=== PATIENT | female | born 1980 | race Caucasian/White ===

== ENCOUNTER 2017-06-15 15:52 | Emergency (ER) | payer BC, OTHER ==
[2017-06-15 16:27] VITALS: BP 134/93
--- NOTE | 2017-06-15 16:48 | UC ---
UC General HPI - HPI Summary HPI Summary: pt c/o ear discomfort and head congestion for 10 days. R ear is worsening. no fever. - History of Current Complaint Chief Complaint: UCGeneralIllness Stated Complaint: BILATERAL EAR COMPLAINT Time Seen by Provider: 06/15/17 16:38 Hx Obtained From: Patient Hx Last Menstrual Period: had tubal 2011 Onset/Duration: Gradual Onset Pain Intensity: 6 Associated Signs & Symptoms: Negative: Fever, Headache - Allergy/Home Medications Allergies/Adverse Reactions: Allergies Allergy/AdvReac Type Severity Reaction Status Date / Time miconazole [From Monistat 7] Allergy Intermediate Itching Verified 06/15/17 16: 28 tramadol Allergy Intermediate Hives Verified 06/15/17 16:28 Adhesive Tape Allergy Rash Verified 06/15/17 16:28 PMH/Surg Hx/FS Hx/Imm Hx Neurological History: Migraine - Surgical History Surgical History: Yes Surgery Procedure, Year, and Place: 3 C-sections. Tubal Ligation. 06/24 [facility]. RIGHT HAND 2000. left ganglion cyst - Family History Known Family History: Positive: None - Social History Lives: With Family Alcohol Use: None Substance Use Type: None Smoking Status (MU): Never Smoked Tobacco Household Exposure Type: Cigarettes - Immunization History Most Recent Influenza Vaccination: none Vaccination Up to Date: Yes Review of Systems Constitutional: Negative Skin: Negative Eyes: Negative ENT: Ear Ache, Nasal Discharge, Sinus Congestion, Sinus Pain/Tenderness Respiratory: Negative Cardiovascular: Negative Gastrointestinal: Negative Genitourinary: Negative Motor: Negative Neurovascular: Negative Musculoskeletal: Negative Neurological: Negative Psychological: Negative Is Patient Immunocompromised?: No All Other Systems Reviewed And Are Negative: Yes Physical Exam Triage Information Reviewed: Yes Appearance: Well-Appearing Vital Signs: Initial Vital Signs Temp 97.2 F 06/15/17 16:22 Pulse 71 06/15/17 16:22 Resp 17 06/15/17 16:22 BP 134/93 06/15/17 16:22 Pulse Ox 99 06/15/17 16:22 Vital Signs Reviewed: Yes Eyes: Positive: Conjunctiva Clear - L, Conjunctiva Inflamed - R slightly injected ENT: Positive: Pharynx normal, Nasal congestion, TMs normal - L, TM red - R. R canal pink and pain with pressure on tragus. L canal is clear.. Negative: Nasal drainage Neck: Positive: Supple, Nontender, No Lymphadenopathy Respiratory: Positive: Lungs clear, Normal breath sounds Cardiovascular: Positive: RRR, No Murmur Abdomen Description: Positive: Nontender, No Organomegaly, Soft Bowel Sounds: Positive: Present Neurological: Positive: Alert Psychological: Positive: Age Appropriate Behavior Skin Exam: Normal Course/Dx - Course Course Of Treatment: R OM/OE. pink eye with no exudate thus no tx. - Differential Dx - Multi-Symptom Provider Diagnoses: R OM, R OE Discharge - Discharge Plan Condition: Stable Disposition: HOME Prescriptions: Amoxicillin PO (*) [Amoxicillin 875 MG (*)] 875 mg PO BID 10 Days #20 tab Ciproflox/Dexameth OTIC.SUSP* [Ciprodex OTIC.SUSP*] 4 drop .SEE ORDER BID 7 Days #1 btl Patient Education Materials: Otitis Externa (ED), Ear Infection (ED) Referrals: Dennis Toussaint MD [Primary Care Provider] - 7 Days
== END 2017-06-15 16:52 | disposition home or self-care (01) ==
LOC: UCCORT 15:52
DX: H60.91 Unspecified otitis externa, right ear (principal); H66.91 Otitis media, unspecified, right ear; Z88.5 Allergy status to narcotic agent; Z88.8 Allergy status to other drugs, medicaments and biological substances; Z91.048 Other nonmedicinal substance allergy status
CPT/HCPCS: 99212; G0463

== ENCOUNTER 2018-04-09 13:00 | Emergency (ER) | payer BC, OTHER ==
[2018-04-09 15:25] VITALS: BP 128/84
--- NOTE | 2018-04-09 15:55 | UC ---
Complaint Female HPI - HPI Summary HPI Summary: The patient is a 38-year-old female with a two-week history of dysuria urgency and frequency. She has a history of multiple kidney stones. She thinks she passed a kidney stone about a week ago. She denies any fever or chills. She denies any nausea or vomiting. She states that she has chronic microscopic hematuria. She has been followed by urologist both urine [place] and in [place]. She denies any vaginal discharge or itching. - History Of Current Complaint Chief Complaint: UCGU Stated Complaint: URINARY Time Seen by Provider: 04/09/18 15:24 Hx Obtained From: Patient Hx Last Menstrual Period: 03/21/18 Onset/Duration: Gradual Onset, Lasting Weeks Timing: Intermittent, Lasting Seconds Severity Initially: Mild Severity Currently: Mild Pain Intensity: 4 - when urinating Pain Scale Used: 0-10 Numeric Character: Burning Aggravating Factor(s): Urination Alleviating Factor(s): Nothing Related Hx: Similar Episode/Dx as: - UTI - Allergies/Home Medications Allergies/Adverse Reactions: Allergies Allergy/AdvReac Type Severity Reaction Status Date / Time tramadol Allergy Intermediate Hives Verified 04/09/18 15:25 Adhesive Tape Allergy Rash Verified 04/09/18 15:25 miconazole [From Monistat 7] AdvReac Intermediate Itching Verified 04/09/18 15: 25 Home Medications: Home Medications Omeprazole CAP* [Prilosec CAP* 20 MG] 20 mg PO BID 04/09/18 [History Confirmed 04/09/18] PMH/Surg Hx/FS Hx/Imm Hx Previously Healthy: Yes GI/ History: Gastroesophageal Reflux, Kidney Stones - Surgical History Surgical History: Yes Surgery Procedure, Year, and Place: 3 C-sections. Tubal Ligation. 06/24 [facility] [place]. RIGHT HAND 2000. left ganglion cyst - Family History Known Family History: Positive: Unknown - NOT very familiar with her family hx. States her dad of [place] - Social History Alcohol Use: None Substance Use Type: None Smoking Status (MU): Never Smoked Tobacco Household Exposure Type: Cigarettes - Immunization History Most Recent Influenza Vaccination: none Vaccination Up to Date: Yes Review of Systems All Other Systems Reviewed And Are Negative: Yes Constitutional: Positive: Negative Skin: Positive: Negative Eyes: Positive: Negative ENT: Positive: Negative Respiratory: Positive: Negative Cardiovascular: Positive: Negative Gastrointestinal: Positive: Negative Genitourinary: Positive: Dysuria, Frequency, Urgency Motor: Positive: Negative Neurovascular: Positive: Negative Musculoskeletal: Positive: Negative Neurological: Positive: Negative Psychological: Positive: Negative Is Patient Immunocompromised?: Yes Physical Exam Triage Information Reviewed: Yes Appearance: Well-Appearing, No Pain Distress, Well-Nourished Vital Signs: Initial Vital Signs Temp 97.6 F 04/09/18 15:20 Pulse 75 04/09/18 15:20 Resp 16 04/09/18 15:20 BP 128/84 04/09/18 15:20 Pulse Ox 99 04/09/18 15:20 Eyes: Positive: Conjunctiva Clear ENT: Positive: Hearing grossly normal. Negative: Nasal congestion, Nasal drainage, Tonsillar swelling, Tonsillar exudate, Trismus, Muffled voice, Hoarse voice, Sinus tenderness Dental Exam: Normal Neck: Positive: Supple, Nontender, No Lymphadenopathy Respiratory: Positive: Lungs clear, Normal breath sounds, No respiratory distress, No accessory muscle use Cardiovascular: Positive: No Murmur, Pulses Normal, Brisk Capillary Refill Abdomen Description: Positive: Nontender, No Organomegaly. Negative: CVA Tenderness (R), CVA Tenderness (L) Bowel Sounds: Positive: Present Musculoskeletal: Positive: ROM Intact, No Edema Neurological: Positive: Alert Psychological Exam: Normal Skin Exam: Normal Diagnostics - Laboratory Diagnostic Studies Completed/Ordered: UA +++ RBCs Complaint Female Dx - Differential Dx/Diagnosis Provider Diagnosis: Dysuria, Microscopic hematuria Discharge - Sign-Out/Discharge Documenting (check all that apply): Patient Departure All imaging exams completed and their final reports reviewed: No Studies - Discharge Plan Condition: Stable Disposition: HOME Patient Education Materials: Dysuria (ED) Referrals: Dennis Toussaint MD [Primary Care Provider] - If Needed Additional Instructions: A urine culture is pending I suspect your urinary symptoms are due to a small stone irritating your bladder recheck for worsening or new symptoms see your urologist late this week if still symptomatic - Billing Disposition and Condition Condition: STABLE Disposition: Home
== END 2018-04-09 16:29 | disposition home or self-care (01) ==
LOC: UCCORT 13:00
DX: R30.0 Dysuria (principal); R31.29 Other microscopic hematuria; Z88.5 Allergy status to narcotic agent; Z88.3 Allergy status to other anti-infective agents; K21.9 Gastro-esophageal reflux disease without esophagitis; Z87.442 Personal history of urinary calculi
CPT/HCPCS: 81003; 84702; 87086; 99212; G0463